=== PATIENT | female | born 1985 | race African-American/Black ===

== ENCOUNTER 2017-09-03 20:56 | Emergency (ER) | payer SELFPAY ==
[2017-09-03 21:14] VITALS: TEMP 97.3; BMI 25.1
[2017-09-03] MEDS ORDERED: SODIUM CHLORIDE 500 ML IV STA (21:15)
--- NOTE | 2017-09-03 21:15 | PDOC ---
Rapid Medical Evaluation Chief Complaint: Vaginal Bleeding Time Seen by Provider: 09/03/17 21:11 Medical Evaluation: 09/03/17 21:11 I performed a brief in-person evaluation of this patient. The patient presents with a chief complaint of: abdominal pain, nausea, vomiting and diarrhea this am after going out drinking last night. Complaining of pain in lower abdomen with nausea. LMP 3 days ago Pertinent physical exam findings: NAD unlabored breathing heart s1s2 abdomen with generalized tenderness I have ordered the following: iv access ns bolus urinalysis The patient will proceed to the Ed for further evaluation
[2017-09-03] MEDS ORDERED: MAG HYDROX/AL HYDROX/SIMETH 30 ML UNIT-DOSE CUP PO ONE (22:54)
[2017-09-03] MEDS ORDERED: ONDANSETRON 4 MG/2 ML VIAL IVPUSH ONE (22:54)
[2017-09-03] MEDS ORDERED: MAG HYDROX/AL HYDROX/SIMETH 30 ML UNIT-DOSE CUP ONE (22:56)
[2017-09-03] MEDS ORDERED: ONDANSETRON 4 MG/2 ML VIAL ONE (22:56)
[2017-09-03 23:05] LABS: BASOPHIL 0.4 % (0-2.0); EOSINOPHIL 0.1 % (0-4.5); MCH 31.3 pg (25.7-33.7); MCHC 33.9 g/dl (32.0-36.0); MEAN CELL VOLUME 92.3 fl (80-96); MEAN PLT VOLUME 8.2 fl (7.5-11.1); NEUTROPHILS 88.5 % (42.8-82.8); PLATELET COUNT 307 K/MM3 (134-434); RDW 13.6 % (11.6-15.6); WHITE BLOOD COUNT 14.1 K/mm3 (4.0-10.0)
[2017-09-03 23:29] LABS: ALBUMIN 3.6 g/dl (3.4-5.0); ALK PHOS 43 U/L (45-117); ANION GAP 12 (8-16); BILIRUBIN,TOTAL 0.4 mg/dL (0.2-1.0); CALCIUM 8.8 mg/dL (8.5-10.1); CO2 23 mmol/L (21-32); CREATININE 0.9 mg/dL (0.55-1.02); GLUCOSE,RANDOM 105 mg/dL (74-106); SGOT/AST 17 U/L (15-37); SGPT/ALT 15 U/L (12-78); TOT PROT 6.8 g/dl (6.4-8.2)
--- NOTE | 2017-09-03 23:49 | PDOC ---
History of Present Illness - General Chief Complaint: Vaginal Bleeding Stated Complaint: VAGINAL BLEEDING Time Seen by Provider: 09/03/17 21:11 - History of Present Illness Initial Comments: 32 year old female [id number] presenting with crampy lower abdominal pain, nausea, vomiting, and diarrhea for the past day. Stated that she went out drinking last night and woke up this afternoon after noticing some vaginal bleeding, nausea, non-bilious/ non bloody vomiting, malodorous diarrhea, and crampy abdominal pain. Her LMP was 07/23/17 and they typically occur through the end of the months but she did not have one this past month. Denies any sick contacts. 09/03/17 23:36 Past History - Past Medical History Allergies/Adverse Reactions: Allergies Allergy/AdvReac Type Severity Reaction Status Date / Time No Known Allergies Allergy Verified 09/03/17 21:14 Home Medications: Ambulatory Orders Nitrofurantoin Monohyd/M-Cryst [Macrobid -] 100 mg PO BID #14 capsule 09/04/17 Phenazopyridine HCl [Pyridium] 200 mg PO TID #6 tablet 09/04/17 COPD: No Other medical history: denies - Reproductive History Is Patient Now?: No - Suicide/Smoking/Psychosocial Hx Smoking History: Never smoked Review of Systems - Review of Systems Constitutional: No: Chills, Fever HEENTM: No: Eye Pain, Blurred Vision Respiratory: No: Cough, Orthopnea, Shortness of Breath Cardiac (ROS): No: Chest Pain ABD/GI: Yes: Diarrhea, Nausea, Vomiting : No: Burning, Dysuria, Discharge Integumentary: No: Flushing, Lesions Neurological: No: Headache, Numbness *Physical Exam - Vital Signs Last Vital Signs Temp Pulse Resp BP Pulse Ox 97.3 F L 84 18 121/53 99 09/03/17 21:10 09/03/17 21:10 09/03/17 21:10 09/03/17 21:10 09/03/17 21:10 - Physical Exam General Appearance: Yes: Nourished, Appropriately Dressed. No: Apparent Distress HEENT: positive: EOMI, BRITTNI, Normal ENT Inspection, Normal Voice Neck: positive: Trachea midline, Normal Thyroid, Rigid. negative: Tender, Supple Respiratory/Chest: positive: Lungs Clear, Normal Breath Sounds. negative: Chest Tender, Respiratory Distress, Accessory Muscle Use Cardiovascular: positive: Regular Rhythm, Regular Rate, S1, S2. negative: Murmur Female Pelvic Exam: positive: normal external exam, cervical os closed, normal adnexa, normal size ovaries, other (Dried blood in the vault.). negative: CMT, lesions Gastrointestinal/Abdominal: positive: Normal Bowel Sounds, Tender (epigastric tenderness), Flat, Soft Extremity: positive: Normal Capillary Refill, Normal Inspection, Normal Range of Motion Integumentary: positive: Normal Color, Dry, Warm Neurologic: positive: Fully Oriented, Alert, Normal Mood/Affect, Normal Response , Motor Strength 02/05 ED Treatment Course - LABORATORY CBC & Chemistry Diagram: 09/03/17 22:55 09/03/17 22:55 - ADDITIONAL ORDERS Additional order review: Laboratory Results 09/03/17 09/03/17 09/03/17 22:55 22:55 22:55 Sodium 141 Potassium 3.9 Chloride 106 Carbon Dioxide 23 Anion Gap 12 BUN 16 Creatinine 0.9 Creat Clearance w eGFR > 60 Random Glucose 105 Calcium 8.8 Magnesium 1.7 L Total Bilirubin 0.4 AST 17 ALT 15 Alkaline Phosphatase 43 L Total Protein 6.8 Albumin 3.6 Lipase 82 09/03/17 22:55 RBC 4.10 MCV 92.3 MCHC 33.9 RDW 13.6 MPV 8.2 Neutrophils % 88.5 H Lymphocytes % 8.3 Monocytes % 2.7 L Eosinophils % 0.1 Basophils % 0.4 - Medications Given in the ED: ED Medications Discontinued Medications Generic Name Dose Route Start Last Admin Trade Name Freq PRN Reason Stop Dose Admin Al Hydroxide/Mg Hydroxide 30 ml 09/03/17 22:54 09/03/17 23:01 Mylanta Oral Suspension - PO 09/03/17 22:55 30 ml ONCE ONE Administration Sodium Chloride 500 mls @ 500 mls/hr 09/03/17 21:15 09/03/17 22:21 Normal Saline - IV 09/03/17 22:14 500 mls/hr ASDIR STA Administration Ondansetron HCl 4 mg 09/03/17 22:54 09/03/17 23:01 Zofran Injection IVPUSH 09/03/17 22:55 4 mg ONCE ONE Administration Medical Decision Making - Medical Decision Making 32 year old female with gastroetneritis symptoms and vaginal bleeding after missing her period last month and a heavy night of drinking the night before. Primary concern is vs. fibroids vs. cystitis. Location of pelvic/ abdominal pain is not concerning for appendicitis, cholecystitis, or diverticulitis. Patient signed out to Dr. Lopez in stable condition pending labs and potential TVUS. 09/03/17 23:40 *DC/Admit/Observation/Transfer Diagnosis at time of Disposition: Vaginal bleeding, Gastroenteritis - Discharge Dispostion Disposition: HOME - Prescriptions Prescriptions: Nitrofurantoin Monohyd/M-Cryst [Macrobid -] 100 mg PO BID #14 capsule Phenazopyridine HCl [Pyridium] 200 mg PO TID #6 tablet - Referrals - Patient Instructions Printed Discharge Instructions: DI for Urinary Tract Infection (UTI), DI for Abdominal Pain-Adult, DI for Vomiting -- Adult Additional Instructions: You have a urinary tract infection. Please follow-up with your [facility] within 1-2 weeks. Take 1 tablet of Macrobid (antibiotic) twice per day for 7 days as directed to treat your infection. Take Pyridium (an analgesic) three times a day with meals for 2 days. This will help with your pain. It will also cause your urine and tears to turn reddish- orange in color, which may stain your clothes. Avoid wearing light colored clothing. Please return to the Emergency Department if you have new, worsening, or concerning symptoms. - Post Discharge Activity
--- NOTE | 2017-09-04 00:06 | PDOC ---
Attending Attestation - Resident Resident Name: Bartolo Coe - ED Attending Attestation I have performed the following: I have examined & evaluated the patient, The case was reviewed & discussed with the resident, I agree w/resident's findings & plan, Exceptions are as noted - HPI HPI: 09/04/17 01:22 32-year-old female presents with intermittent nausea, several episodes of nonbloody, nonbilious vomiting, loose watery stools, intermittent vaginal bleeding and crampy continuous lower abdominal pain. Patient reports drinking alcohol the night prior to the onset of symptoms. - Physicial Exam PE: 09/04/17 01:22 Patient is awake and alert, afebrile, hemodynamically stable; nc, atr cta rrr sft, nd, + mild suprapubic ttp no cva ttp - Medical Decision Making 09/04/17 01:23 32-year-old female presents with nausea, vomiting, diarrhea, vaginal bleeding and abdominal pain. Serial abdominal exams reveal left lower pelvic and suprapubic tenderness only; there is no tenderness at McBurney's point and Phelps's is negative. Patient is UCG negative. CBC reveals mild leukocytosis With predominance of neutrophils. CMP is within normal limit. Urinalysis is nitrite positive with few bacteria. Pelvic exam revealed no evidence of CMT as per Dr. Coe I suspect acute gastroenteritis with concomitant UTI. Acute appendicitis is highly unlikely at this time. We'll administer Toradol, IV fluids, H2 blockers. Will discharge with by mouth antibiotics and Pyridium. 09/04/17 01:47 Patient reassessed. Patient is pain free, tolerates by mouth. I do not suspect acute appendicitis. Will discharge.
[2017-09-04 00:17] LABS: URINE APPEARANCE SLCLOUDY; URINE BILIRUBIN NEGATIVE (NEGATIVE); URINE BLOOD 2+ (NEGATIVE); URINE COLOR DKYELLOW; URINE GLUCOSE (UA) NEGATIVE (NEGATIVE); URINE KETONE TRACE (NEGATIVE); URINE NITRITE POSITIVE (NEGATIVE); URINE PROTEIN NEGATIVE (NEGATIVE); URINE UROBILINOGEN 4.0 E.U/dl mg/dL (0.2-1.0)
--- NOTE | 2017-09-04 00:21 | PDOC ---
*Physical Exam - Vital Signs Last Vital Signs Temp Pulse Resp BP Pulse Ox 97.3 F L 84 18 121/53 99 09/03/17 21:10 09/03/17 21:10 09/03/17 21:10 09/03/17 21:10 09/03/17 21:10 - Physical Exam General Appearance: Yes: Nourished, Appropriately Dressed Gastrointestinal/Abdominal: positive: Normal Bowel Sounds, Soft ((+) suprapubic and LLQ tenderness) ED Treatment Course - LABORATORY CBC & Chemistry Diagram: 09/03/17 22:55 09/03/17 22:55 - ADDITIONAL ORDERS Additional order review: Laboratory Results 09/04/17 09/03/17 09/03/17 00:00 22:55 22:55 Sodium Potassium Chloride Carbon Dioxide Anion Gap BUN Creatinine Creat Clearance w eGFR Random Glucose Calcium Magnesium 1.7 L Total Bilirubin AST ALT Alkaline Phosphatase Total Protein Albumin Lipase 82 Urine Color Dkyellow Urine Appearance Slcloudy Urine pH 5.0 Ur Specific [place] 1.017 Urine Protein Negative Urine Glucose (UA) Negative Urine Ketones Trace H Urine Blood 2+ H Urine Nitrite Positive Urine Bilirubin Negative Urine Urobilinogen 4.0 e.u/dl H Urine HCG, Qual Negative 09/03/17 22:55 Sodium 141 Potassium 3.9 Chloride 106 Carbon Dioxide 23 Anion Gap 12 BUN 16 Creatinine 0.9 Creat Clearance w eGFR > 60 Random Glucose 105 Calcium 8.8 Magnesium Total Bilirubin 0.4 AST 17 ALT 15 Alkaline Phosphatase 43 L Total Protein 6.8 Albumin 3.6 Lipase Urine Color Urine Appearance Urine pH Ur Specific [place] Urine Protein Urine Glucose (UA) Urine Ketones Urine Blood Urine Nitrite Urine Bilirubin Urine Urobilinogen Urine HCG, Qual 09/03/17 22:55 RBC 4.10 MCV 92.3 MCHC 33.9 RDW 13.6 MPV 8.2 Neutrophils % 88.5 H Lymphocytes % 8.3 Monocytes % 2.7 L Eosinophils % 0.1 Basophils % 0.4 - Medications Given in the ED: ED Medications Discontinued Medications Generic Name Dose Route Start Last Admin Trade Name Freq PRN Reason Stop Dose Admin Al Hydroxide/Mg Hydroxide 30 ml 09/03/17 22:54 09/03/17 23:01 Mylanta Oral Suspension - PO 09/03/17 22:55 30 ml ONCE ONE Administration Sodium Chloride 500 mls @ 500 mls/hr 09/03/17 21:15 09/03/17 22:21 Normal Saline - IV 09/03/17 22:14 500 mls/hr ASDIR STA Administration Ondansetron HCl 4 mg 09/03/17 22:54 09/03/17 23:01 Zofran Injection IVPUSH 09/03/17 22:55 4 mg ONCE ONE Administration Medical Decision Making - Medical Decision Making 09/04/17 01:04 test is negative. Patient c/o stabbing lower abdominal pain. Will give Toradol and reassess. UA c/w UTI. Will treat with 7days of Macrobid and 2 days of Pyridium. Urine Test Results Urine Color Dkyellow 09/04/17 00:00 Urine Appearance Slcloudy 09/04/17 00:00 Urine pH 5.0 (5.0-8.0) 09/04/17 00:00 Ur Specific [place] 1.017 (1.001-1.035) 09/04/17 00:00 Urine Protein Negative (NEGATIVE) 09/04/17 00:00 Urine Glucose (UA) Negative (NEGATIVE) 09/04/17 00:00 Urine Ketones Trace (NEGATIVE) H 09/04/17 00:00 Urine Blood 2+ (NEGATIVE) H 09/04/17 00:00 Urine Nitrite Positive (NEGATIVE) 09/04/17 00:00 Urine Bilirubin Negative (NEGATIVE) 09/04/17 00:00 Ur Epithelial Cells Rare /HPF (FEW) 09/04/17 00:00 Urine Bacteria Few /hpf (NONE SEEN) 09/04/17 00:00 Urine Mucus Few 09/04/17 00:00 09/04/17 02:42 Patient's pain improved with Ketoralac. No further episodes of vomiting or diarrhea. Symptomatology likely due to acute gastroenteritis with concurrent UTI. Pt is stable for discharge home, and instructed to follow-up with [facility] when she returns home to [place]. 09/04/17 02:44 *DC/Admit/Observation/Transfer Diagnosis at time of Disposition: UTI (urinary tract infection) - Discharge Dispostion Disposition: HOME - Prescriptions Prescriptions: Nitrofurantoin Monohyd/M-Cryst [Macrobid -] 100 mg PO BID #14 capsule Phenazopyridine HCl [Pyridium] 200 mg PO TID #6 tablet - Referrals - Patient Instructions Printed Discharge Instructions: DI for Urinary Tract Infection (UTI), DI for Abdominal Pain-Adult, DI for Vomiting -- Adult Additional Instructions: You have a urinary tract infection. Please follow-up with your [facility] within 1-2 weeks. Take 1 tablet of Macrobid (antibiotic) twice per day for 7 days as directed to treat your infection. Take Pyridium (an analgesic) three times a day with meals for 2 days. This will help with your pain. It will also cause your urine and tears to turn reddish- orange in color, which may stain your clothes. Avoid wearing light colored clothing. Please return to the Emergency Department if you have new, worsening, or concerning symptoms. - Post Discharge Activity
[2017-09-04 00:25] LABS: URINE BACTERIA FEW /hpf (NONE SEEN); URINE MUCUS FEW; URINE RBC 28 /hpf (0-3); URINE WBC 2 /hpf (3-5)
[2017-09-04] MEDS ORDERED: MAGNESIUM SULF 50% (8.12 MEQ/2 ML-1 GM VIAL) IVPB ONE (00:46)
[2017-09-04] MEDS ORDERED: MAGNESIUM SULF 50% (8.12 MEQ/2 ML-1 GM VIAL) ONE (00:50)
[2017-09-04] MEDS ORDERED: KETOROLAC TROMETHAMINE 30 MG/1 ML VIAL IVPUSH ONE (01:02)
[2017-09-04] MEDS ORDERED: KETOROLAC TROMETHAMINE 30 MG/1 ML VIAL ONE (01:04)
[2017-09-04 01:45] VITALS: BP 119/62; PULSE 82
[2017-09-04 10:51] LABS: URINE LEUK ESTERASE Negative (NEGATIVE)
== END 2017-09-04 02:01 | disposition home or self-care (01) ==
LOC: JER 20:56
PROC: 3E0337Z Introduction of Electrolytic and Water Balance Substance into Peripheral Vein, Percutaneous Approach (ICD-10-PCS; principal; 2017-09-03)
PROC: 3E0333Z Introduction of Anti-inflammatory into Peripheral Vein, Percutaneous Approach (ICD-10-PCS; 2017-09-03)
PROC: 3E033GC Introduction of Other Therapeutic Substance into Peripheral Vein, Percutaneous Approach (ICD-10-PCS; 2017-09-03)
PROC: 3E033GC Introduction of Other Therapeutic Substance into Peripheral Vein, Percutaneous Approach (ICD-10-PCS; 2017-09-03)
DX: K52.9 Noninfective gastroenteritis and colitis, unspecified (principal); N93.8 Other specified abnormal uterine and vaginal bleeding
CPT/HCPCS: 36415; 80053; 81003; 81015; 83690; 83735; 84703; 85025; 87086; 87186; 87491; 87591; 99283-25